=== PATIENT | male | born 1940 | race Caucasian/White ===

== ENCOUNTER 2017-10-09 05:40 | Day surgery (SDC) | payer OTHER, BC ==
[~2017-10-09] VITALS: Ht 182.9 cm; Wt 131.5 kg
--- NOTE | ~2017-10-09 | O ---
[facility] [place] [address] OPERATIVE REPORT Name: SHIMA LUBIN Room #: 150-8 [facility]..#: [id number] Admission: 10/09/17 Attend Phys: Collins Stovall MD Discharge: Date of : 42 Report #: [id number] THIS REPORT FOR: //name// CC: Kyle Gregorio FAM unknown Collins Stovall PREOPERATIVE DIAGNOSIS: Left upper lid mechanical entropion, morbid obesity, obstructive sleep apnea, floppy eyelid syndrome and chronic conjunctivitis. POSTOPERATIVE DIAGNOSIS: Left upper lid mechanical entropion, morbid obesity, obstructive sleep apnea, floppy eyelid syndrome and chronic conjunctivitis. PROCEDURE: Left upper lid resection with myocutaneous flap repair of defect, left upper lid entropion repair by flap. SURGEON: Collins Stovall MD GASOLINE DRAGLINE OPERATOR: None. ANESTHESIA: MAC. COMPLICATIONS: None. INDICATIONS FOR SURGERY: This 77-year-old gentleman has obesity related floppy eyelid syndrome in the setting of largely untreated obstructive sleep apnea. He has mechanical entropion of his left upper lid with chronic conjunctivitis and obstruction of his vision. He presents today for a procedure in order to attempt to herberth his lid margin and tighten the lid in such a manner so that his visual obscurations could be improved and his discharge largely subsided. He understands that this problem has a high recurrence rate and is related to his weight. Informed consent was obtained to include but not limited to potential risk for loss of vision, bleeding, infection, failure to improve the problem and the potential need for further surgery or treatment. DESCRIPTION OF PROCEDURE: The patient was taken to the operating room where 2% Xylocaine with epinephrine mixed equal parts, 0.75% Marcaine with Wydase was administered transcutaneously and transconjunctivally to the left upper lid, the left brow and the left infratemporal fossa. The left lateral canthus and the lateral left lower lid were similarly anesthetized. The patient was subsequently prepped and draped in the usual sterile fashion. A fine tip skin marking pen was utilized to gregoria a point laterally where a 5-7 mm stab of the lateral canthal tendon could be identified. This was marked vertically across the lid margin. The lid was then distracted laterally and an amount of redundant tissue that could be excised was outlined. It was approximately 3 cm in width. The incisions were then made perpendicularly across the eyelid margin [address] [address] OPERATIVE REPORT Name: SHIMA LUBIN Tiffany Room #: 150-8 [facility]#: [id number] Admission: 10/09/17 Attend Phys: Collins Stovall MD Discharge: Date of : 42 Report #: [id number] or drawn to a point at the level of the arcus marginalis. Hemostasis was achieved with diligent pinpoint monopolar cautery. The left upper lid entropion was then repaired with a flap as 5-0 Vicryl sutures were used to advance the anterior lamella on the posterior lamella thus everting the lashes across the remaining stump of lid medially. The sutures everted the lid nicely. A myocutaneous flap was then developed laterally to aid in the correction of the defect to allow smooth lid margin contour. Hemostasis was then re-achieved. The flap was then advanced and closed with multiple interrupted 5-0 Vicryl sutures deep. 5-0 Vicryl sutures were also placed across the tarsal plate. A dog ear was then excised superiorly to allow the tissue to lay flat as the flap was drawn across. Multiple additional Vicryl sutures were then placed superiorly; 7-0 Vicryl sutures were placed across the eyelid margin in an interrupted fashion. The skin was then closed more superiorly with 6-0 plain gut sutures and 7-0 Vicryl sutures. The wound was then cleaned and dressed with erythromycin ophthalmic ointment. The patient subsequently transported to the recovery area having tolerated the procedure well with no anesthetic or operative complications being noted. By: [id number] Collins Stovall MD /nt
[~2017-10-09 05:40] MED LIST: ATORVASTATIN CA40 MG PO; CALCIUM500 MG PO; CARDIOSTEROL C1 EACH PO; COQ-10100 MG PO; CRESTOR10 MG PO; JANUMET 50-1,01 EACH PO; LIPITOR10 MG PO; MAGNESIUM MALATE1 GM PO; MULTIVITAMINS PO; NORCO 10-325 T1 EACH PO; OSTEO BI-FLEX1 EAC1 PO; PRADAXA150 MG PO; TOPROL XL100 MG PO; TRAMADOL 50 MG50 MG PO; VITAMIN A8000 UNI1 PO; VITAMIN B COMP1 EACH PO; VITAMIN C1000 MG PO; VITAMIN E400 UNI2 PO
[2017-10-09 08:23] VITALS: BP 143/93
== END 2017-10-09 09:26 | disposition short-term general hospital (02) ==
LOC: TBA 05:40 → OR 05:40
DX: H02.024 Mechanical entropion of left upper eyelid (principal); H02.89 Other specified disorders of eyelid; H10.402 Unspecified chronic conjunctivitis, left eye; I10 Essential (primary) hypertension; E11.9 Type 2 diabetes mellitus without complications; I48.2 Chronic atrial fibrillation; G47.33 Obstructive sleep apnea (adult) (pediatric); K21.9 Gastro-esophageal reflux disease without esophagitis; E66.01 Morbid (severe) obesity due to excess calories; E78.5 Hyperlipidemia, unspecified; Z85.46 Personal history of malignant neoplasm of prostate; Z87.442 Personal history of urinary calculi; Z79.01 Long term (current) use of anticoagulants; Z79.899 Other long term (current) drug therapy; Z96.652 Presence of left artificial knee joint; Z98.41 Cataract extraction status, right eye; Z98.42 Cataract extraction status, left eye; Z98.890 Other specified postprocedural states; Z79.891 Long term (current) use of opiate analgesic
CPT/HCPCS: 50010; 50101; 50386; 50398; 51636; 56528; 56531; 70005

== ENCOUNTER 2017-11-06 05:36 | Day surgery (SDC) | payer OTHER, BC ==
[~2017-11-06] VITALS: Ht 180.3 cm; Wt 131.5 kg
--- NOTE | ~2017-11-06 | O ---
[facility] [place] [address] OPERATIVE REPORT Name: SHIMA LUBIN Room #: 150-17 [facility]..#: [id number] Admission: 11/06/17 Attend Phys: Collins Stovall MD Discharge: Date of : 42 Report #: [id number] THIS REPORT FOR: //name// CC: FAM unknown Collins Stovall DATE OF SERVICE: 11/06/2017 PREOPERATIVE DIAGNOSES: Right upper lid mechanical entropion, morbid obesity, obstructive sleep apnea, floppy eyelid syndrome with chronic conjunctivitis. POSTOPERATIVE DIAGNOSES: Right upper lid mechanical entropion, morbid obesity, obstructive sleep apnea, floppy eyelid syndrome with chronic conjunctivitis. PROCEDURE: Right upper lid resection with myocutaneous flap repair of defect, right upper lid entropion repair by flap. SURGEON: Collins Stovall M.D. SOFTWARE CONSULTANT: None. ANESTHESIA: MAC. COMPLICATIONS: None. INDICATIONS FOR SURGERY: This pleasant 77-year-old gentleman has morbid obesity related floppy eyelid syndrome in the setting of largely untreated obstructive sleep apnea. He has mechanical entropion of his right upper lid with chronic conjunctivitis and obstruction of his vision. He presents today for procedure in order to attempt to herberth the lid margin and tighten the lid in such a manner that his visual obscuration could be improved and his discharge largely subsided, thus improving his visual function, level of comfort and discharge. He understands that this problem has a high recurrence rate and is related to his weight. Informed consent was obtained to include but not limited to the potential risk for loss of vision, bleeding, infection, failure to improve the problem and the potential need for further surgery or treatment. DESCRIPTION OF PROCEDURE: The patient was taken to the operating room where 2% Xylocaine with epinephrine mixed with equal parts of 0.75% Marcaine with Wydase was administered transcutaneously and transconjunctivally to the right upper lid, the right brow, the infratemporal fossa. The right lateral canthus and the lower lid were similarly anesthetized. The patient was subsequently prepped and draped in usual sterile fashion. A fine tip skin marking pen was then utilized to outline the redundant upper lid tissue across the lid margin laterally. The width of the excision was approximately 3 cm. The incisions were then made perpendicularly across the eyelid margin with a Erica scissor and drawn to a [facility] [address] [place] [address] OPERATIVE REPORT Name: SHIMA LUBIN Room #: 150-17 [facility]..#: [id number] Admission: 11/06/17 Attend Phys: Collins Stovall MD Discharge: Date of : 42 Report #: [id number] point at the arcus marginalis superiorly. Hemostasis was achieved with diligent pinpoint monopolar cautery. The right upper lid entropion was then repaired with an advancement flap as multiple interrupted 6-0 Vicryl sutures were then used to advance the anterior lamella superiorly on to the posterior lamella thus everting the lashes across the remaining stump of the lid medially. This everted the lid nicely. A myocutaneous flap was then developed laterally to aid in correction of the defect and allow smooth lid margin contour. Hemostasis was then re-achieved. The flap was then advanced and closed with multiple interrupted deep 6-0 Vicryl sutures. 6-0 Vicryl sutures were also used to reapproximate the tarsal plate. Interrupted 7-0 Vicryl sutures were placed across the eyelid margin and used to close the superficial subcutaneous structures. 6-0 plain gut sutures were then used to close the skin. The wounds were then cleaned and dressed with erythromycin ophthalmic ointment, and the patient subsequently transported to the recovery area having tolerated the procedures well with no anesthetic or operative complications being noted. By: [id number] Collins Stovall MD /nt
[2017-11-06 09:54] VITALS: BP 153/75
== END 2017-11-06 10:58 | disposition home or self-care (01) ==
LOC: OR 05:36 → TBA 05:37 → OR 10:58
DX: H02.021 Mechanical entropion of right upper eyelid (principal); H02.89 Other specified disorders of eyelid; H10.401 Unspecified chronic conjunctivitis, right eye; I10 Essential (primary) hypertension; I48.2 Chronic atrial fibrillation; E78.5 Hyperlipidemia, unspecified; K21.9 Gastro-esophageal reflux disease without esophagitis; E66.01 Morbid (severe) obesity due to excess calories; G47.33 Obstructive sleep apnea (adult) (pediatric); E11.9 Type 2 diabetes mellitus without complications; Z98.41 Cataract extraction status, right eye; Z85.828 Personal history of other malignant neoplasm of skin; Z68.41 Body mass index [BMI] 40.0-44.9, adult; Z85.46 Personal history of malignant neoplasm of prostate; Z87.442 Personal history of urinary calculi; Z98.42 Cataract extraction status, left eye; Z96.652 Presence of left artificial knee joint; Z98.890 Other specified postprocedural states; Z79.899 Other long term (current) drug therapy; Z79.01 Long term (current) use of anticoagulants; Z79.891 Long term (current) use of opiate analgesic
CPT/HCPCS: 50010; 50101; 50386; 50398; 51636; 56528; 56531; 62110; 62850; 70005